=== PATIENT | male | born 1960 ===

== ENCOUNTER → 2022-01-26 14:26 | Outpatient (BNVA) | payer MEDICARE, MEDICAID, SELFPAY | PROVIDERS: Family Provider Family Medicine; Visit Provider Podiatrist Foot & Ankle Surgery | DX: M76.829 Posterior tibial tendinitis, unspecified leg (principal); M20.41 Other hammer toe(s) (acquired), right foot; M20.42 Other hammer toe(s) (acquired), left foot; M21.41 Flat foot [pes planus] (acquired), right foot; M21.42 Flat foot [pes planus] (acquired), left foot; L60.3 Nail dystrophy; M19.079 Primary osteoarthritis, unspecified ankle and foot; I73.9 Peripheral vascular disease, unspecified; E11.42 Type 2 diabetes mellitus with diabetic polyneuropathy; R09.89 Other specified symptoms and signs involving the circulatory and respiratory systems | CPT/HCPCS: 11721; 73600; 73630; 99204 ==

== ENCOUNTER 2022-03-14 11:12 | Outpatient (CLI) | payer MEDICARE, MEDICAID, SELFPAY ==
[2022-03-14 12:50] LABS: LAB Peripheral Smear Sent for Review
== END 2022-03-14 11:13 | disposition home or self-care (01) ==
PROVIDERS: PCP Family Medicine; Visit Provider Family Medicine
DX: D69.6 Thrombocytopenia, unspecified (principal)
CPT/HCPCS: 36415; 80503

== ENCOUNTER → 2022-05-31 12:49 | Outpatient (BNVA) | payer MEDICARE, MEDICAID, SELFPAY | PROVIDERS: PCP Family Medicine; Visit Provider Podiatrist Foot & Ankle Surgery | DX: M76.821 Posterior tibial tendinitis, right leg (principal); M21.41 Flat foot [pes planus] (acquired), right foot; M21.42 Flat foot [pes planus] (acquired), left foot; M19.071 Primary osteoarthritis, right ankle and foot; M20.41 Other hammer toe(s) (acquired), right foot; M20.42 Other hammer toe(s) (acquired), left foot; L60.3 Nail dystrophy; I73.9 Peripheral vascular disease, unspecified; E11.42 Type 2 diabetes mellitus with diabetic polyneuropathy; R09.89 Other specified symptoms and signs involving the circulatory and respiratory systems | CPT/HCPCS: 99213; 99214 ==

== ENCOUNTER 2022-06-10 09:24 | Outpatient (CLI) | payer MEDICARE, MEDICAID, SELFPAY ==
--- NOTE | 2022-06-10 09:49 | USCV_ITS ---
Andres Nobleice Age: 61 Gender: M : 1960 Exam Date: 06/10/2022 10:22 Ordering Phys: Yazan Mcgregor DPM Technologist: Anuja Mendiola Exam Location: [facility] [place] Indication: decreased pedal pluses RIGHT LEFT Brachial 150.00 mmHg Brachial 153.00 mmHg Pressure (mmHg) Waveform Pressure (mmHg) Waveform 179.00 High Thigh 220.00 Above Knee 134.00 Below Knee 199.00 HEALTH ECONOMIST 0.00 134.00 DPA 220.00 1.30 Ankle/Brachial Index 134.00 Pre-Exercise Toe Pressure 129.00 0.88 Pre-Exercise Toe/Brachial Index 0.84 FINDINGS Resting MOLLY 1.3 on the right. Noncompressible vessels on the left side. Resting TBI of 0.88 on the right and 0.84 on the left Normal PVR waveforms bilaterally Could not obtain the PVR waveforms in the left ankle CONCLUSIONS 1. Features of extensive arterial sclerosis 2. No significant arterial obstruction, bilaterally, based on the above findings Dr January Evans MD [facility] (Electronically Signed) Final Date: 11 June 2022 12:36 S
== END 2022-06-10 09:25 | disposition home or self-care (01) ==
PROVIDERS: PCP Family Medicine; Visit Provider Podiatrist Foot & Ankle Surgery
DX: I73.9 Peripheral vascular disease, unspecified (principal); R09.89 Other specified symptoms and signs involving the circulatory and respiratory systems
CPT/HCPCS: 93923